=== PATIENT | female | born 1990 | race African-American/Black ===

== ENCOUNTER 2017-07-28 23:24 | Inpatient (IN) | payer OTHER ==
[~2017-07-28] VITALS: Ht 170.2 cm; Wt 90.0 kg
[2017-07-28 23:45] VITALS: BP 133/78; PULSE 88; TEMP 98.1
[2017-07-29] VITALS (15 sets, daily range): BP systolic 99–144; BP diastolic 60–92; PULSE 80–109; TEMP 98.4–98.9
[2017-07-29] MEDS ORDERED: PRENATAL MVI (00:08)
[2017-07-29] MEDS ORDERED: PROFERRIN ES12 MG PO (00:09)
[2017-07-29 00:52] LABS: HEMOGLOBIN 12.2 g/dl (12.5-16.0); MEAN CELL VOLUME 80 fl (80.0-100.0); MEAN CORPUSCULAR HEMOGLOBIN 27 pg (27.0-31.0); MEAN CORPUSCULAR HGB CONC 34 g/dl (33.0-37.0); MEAN PLATELET VOLUME 12.7 fl (7.4-10.4); PLATELET COUNT 205 K/mm3 (130-400); RED BLOOD COUNT 4.52 M/mm3 (4.10-5.30)
[2017-07-29 00:53] LABS: ADD PATHOLOGY DIFF REVIEW NO; HEMATOCRIT 36.2 % (37.0-47.0)
[2017-07-29 01:16] LABS: BASOPHIL 1 % (0-2); EOSINOPHIL 1 % (0-4); LYMPHOCYTE 30 % (20.0-51.0); NEUTROPHILS 59 % (42.0-75.2); TOTAL CELLS COUNTED 100
[2017-07-29 01:18] LABS: ANISOCYTOSIS 1+; HYPOCHROMIA 1+
[2017-07-30 07:12] VITALS: BP 112/65; PULSE 80; TEMP 98.2
[2017-07-30] MEDS ORDERED: IBU800 M1 PO (09:33)
[2017-07-30] MEDS ORDERED: PERCOCET 325 MG1 TA2 PO (09:34)
[2017-07-30] MEDS ORDERED: ANUSOL-HC2.5% RC (09:35)
== END 2017-07-30 14:30 | disposition home or self-care (01) | DRG 767 ==
LOC: LDRO 23:24 → OB 23:30 → LDR 23:30 → OB 07-29 05:00
PROVIDERS: Obstetrics & Gynecology
PROC: 10E0XZZ Delivery of Products of Conception, External Approach (ICD-10-PCS; principal; 2017-07-29)
PROC: 10D17Z9 Manual Extraction of Products of Conception, Retained, Via Natural or Artificial Opening (ICD-10-PCS; 2017-07-29)
PROC: 0KQM0ZZ Repair Perineum Muscle, Open Approach (ICD-10-PCS; 2017-07-29)
DX: O48.0 Post-term pregnancy (principal); O99.02 Anemia complicating childbirth; D56.3 Thalassemia minor; O73.1 Retained portions of placenta and membranes, without hemorrhage; O70.1 Second degree perineal laceration during delivery; Z3A.40 40 weeks gestation of pregnancy; Z37.0 Single live birth; Z93.3 Colostomy status
CPT/HCPCS: J0690; J2590; J3010; J7120